=== PATIENT | male | born 1945 | race Caucasian/White ===

== ENCOUNTER 2021-08-27 16:55 | Emergency (ER) | payer MEDICARE, SELFPAY ==
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
[2021-08-27 16:58] VITALS: BP 111/52; PULSE 104; RESP 18; TEMP 36.1; O2SAT 96
[2021-08-27] MEDS: LIDOCAINE 5% PATCH 1 PATCH TRANSDERM (18:06)
[2021-08-27 18:29] LABS: SARS-CoV-2 RNA PCR Positive
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
[2021-08-27 19:52] LABS: Anion Gap 9 mmol/L (8-16); Blood Urea Nitrogen 20 mg/dL (9-20); Calcium 8.1 mg/dL (8.4-10.2); Carbon Dioxide 23 mmol/L (22-30); Chloride 98 mmol/L (98-107); Estimated CRCL calculation 61 ml/min; Estimated Glomerular Filt Rate > 60; Glucose 97 mg/dL (65-110); Sodium 130 mmol/L (137-145)
== END 2021-08-27 21:00 | disposition home or self-care (01) ==
PROVIDERS: Physician Assistant; Emergency Provider Emergency Medicine
DX: U07.1 COVID-19 (principal); Z28.310 Unvaccinated for COVID-19; F17.200 Nicotine dependence, unspecified, uncomplicated
CPT/HCPCS: 36415; 71046; 71100; 80048; 99283; A9270; C9803; U0003; U0005

== ENCOUNTER 2025-01-11 07:53 | Outpatient (CLI) | payer MEDICARE, SELFPAY ==
--- NOTE | ~2025-01-11 | CT_ITS ---
EXAMINATION: CT chest abdomen pelvis w con DATE: 01/11/2025 09:35 INDICATION: Throat cancer. TECHNIQUE: Computed tomography (CT) of the chest, abdomen, and pelvis was performed with 100 mL Omnipaque 350 intravenous contrast. Automated exposure control and iterative reconstruction technique were employed. The dose-length product was 819.42 mGy-cm. COMPARISON: None FINDINGS: CHEST CT: There is mild emphysema. There is mild atelectasis bilaterally. No pleural effusion. The heart size is normal. There is lipomatous hypertrophy of the interatrial septum. There are coronary artery calcifications. No pericardial effusion. There is mediastinal lymphadenopathy. The largest node measures 2.1 x 1.9 cm. There is mild chronic anterior wedging of multiple thoracic vertebral bodies. There is mild thoracic spondylosis. ABDOMEN/PELVIS CT: There is a 2.5 cm cyst in the liver. The gallbladder, spleen, pancreas, and adrenal glands are normal. There is cortical thinning of the kidneys. There is a left inguinal hernia containing nonobstructed small bowel. The bladder is distended. The prostate is moderately enlarged. There is diverticulosis of the colon without evidence of diverticulitis. The appendix is normal. There are no dilated loops of bowel. There are no pathologically enlarged lymph nodes. There is no free intraperitoneal fluid. There is mild lumbar spondylosis. Thoracolumbar dextroscoliosis is noted. IMPRESSION: 1. Mediastinal lymphadenopathy, which is indeterminate for metastatic disease. 2. Mild emphysema. 3. Left inguinal hernia containing nonobstructed small bowel. Reviewed, dictated and finalized at location E.
--- NOTE | ~2025-01-11 | CT_ITS ---
EXAMINATION: CT soft tissue neck w con DATE: 01/11/2025 09:36 INDICATION: Throat cancer. TECHNIQUE: Computed tomography (CT) of the neck was performed with 75 mL Omnipaque-350 intravenous contrast. Automated exposure control and iterative reconstruction technique were employed. The dose-length product was 819.42 mGy-cm. COMPARISON: None FINDINGS: There are changes of laryngectomy. There is mucosal thickening in the pharyngeal mucosal space and fat stranding in the neck, consistent with changes of radiation therapy. There is a 9 x 5 mm rim-enhancing mass in the pharynx on the left (axial image 48/111). There are no pathologically enlarged lymph nodes. There is plaque in the proximal internal carotid arteries with 0% stenosis relative to normal distal artery lumen diameters. There is mucosal thickening in the paranasal sinuses. The mastoid air cells are normal. There is moderate cervical spondylosis. IMPRESSION: 1. 9 x 5 mm rim-enhancing mass in the pharynx on the left, which may be benign or malignant. Reviewed, dictated and finalized at location E.
--- OUTSIDE RECORDS SUMMARY | 2025-01-11 08:06 | XMS_ITS ---
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 08/27/2022 Encounter for postoperative care 08/26/2022 Status post radical dissection of neck Tracheostomy status 08/26/2022 Constipation 08/23/2022 MRSA bacteremia 08/20/2022 Pneumonia of both lower lobe s due to methicillin resistant Staphylococcus aureus (MRSA) 08/20/2022 Nausea 08/20/2022 Other dysphagia 08/16/2022 Situational depression 08/16/2022 Hospital-acquired bacterial pneumonia 08/15/2022 Palliative care encounter 08/15/2022 ACP (advance care planning) 08/15/2022 Decreased mobility 08/15/2022 Acute respiratory failure with hypoxia 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 Past Treatment and Therapy Plans No past plan information found. Lifetime Dose Tracking * Chemical Lifetime Dose Automatic Entry Manual Entr y Effective Dose 39.12 mSv 39.12 mSv 0 mSv Total DLP 1,949.98 DLP 1,949.98 DLP 0 DLP CTDIvol Max 49.05 mGy 49.05 mGy 0 mGy
--- OUTSIDE RECORDS SUMMARY | 2025-01-11 08:06 | XMS_ITS | Clinical Summary ---
Author Organization [facility] Address [address] [place] [address] Phone Care Team Providers Care Certified Registered Dental Assistant Name Role Phone Unavailable Primary Care Provider Unavailabl e Allergies No known active allergies Medications levothyroxine 50 mcg tablet Take 1 Tablet (50 mcg) by mouth daily in the morning. 60 Tablet 08/31/2022 Active HYDROcodone-acet aminophen (HYCET) 7.5-325 mg/15 mL SolutionIndicati ons:Post-op pain 10 mL by G Tube route every 4 hours as needed for Pain, Moderate. Max Daily Amount: 60 mL 300 mL 08/31/2022 Active sertraline (ZOLOFT) 25 mg tablet TAKE 1 TABLET(25 MG) BY MOUTH DAILY 30 Tablet 3 09/25/2022 Active Active Problems Problem Noted Date Diagnosed Date [...] 07/25/2022 Tobacco abuse 07/25/2022 Oropharyngeal cancer 07/25/2022 Encounters Date Type Department Care Team Description 12/22/2024 External Device Data ST[facility] ABSTRACTION Provider, Abstract from Last 3 Months Family History Medical History Relation Name Comments Lung Cancer Mother Breast Cancer Sister Relation Name Status Comments Mother Sister Social History Tobacco Use Types Packs/Day Years Used Date Smoking Tobacco: Former Cigarettes Q uit: 07/24/2022 Smokeless Tobacco: Never Tobacco Cessation:Counseling Given: Not Answered Alcohol Use Standard Drinks/Week Comments Not Currently 0 (1 standard drink = 0.6 oz pur e alcohol) Feeling Safe Answer Date Recorded Are you in a relationship wi th someone who hurts you emotionally and/or physically? No 02/11/2023 Food Insecurity Answer Date Recorded Social/Environmental Concerns No concerns Transportation Needs Answer Date Record ed Social/Environmental Concerns No concerns Housing Stability Answer Date Recorded Social/Environmental Concerns No concerns Utility Needs Answer Date Recorded Social/Environmental Concerns No concerns Sex and Gender Information Value Date Recorded Sex Assigned at Not on file Legal Sex Male 7:45 PM CDT Gender Identity Not on file Sexual Orientation Not on file Last Filed Vital Signs Vital Sign Reading Time Taken Comments Blood Pressure 153/65 02/11/2023 11:00 PM CDT Pulse 63 02/11/2023 11:00 PM CDT Temperature 36.5 C (97.7 F) 02/11/2023 6:45 PM CDT Respiratory Rate 16 12/17/2023 11:35 AM CDT Oxygen Saturation 95% 02/11/2023 11:00 PM CDT Inhaled Oxygen Concentration - - Weight 59 kg (130 lb) 12/17/2023 11:35 AM CDT Height 170.2 cm (5' 7) 12/17/2023 11:35 AM CDT Body Mass Index 20.36 12/17/2023 11:35 AM CDT Plan of Treatment Health Maintenance Due Date Last Done Comments DTAP/TDAP/TD VACCINES (1 - Tdap) 1963 PNEUMOCOCCAL VACCINE 50+ YEARS (1 of 1 - PCV) 04/28/18 95 ZOSTER VACCINE (1 of 2) 1994 RSV VACCINE (60+ or ) (1 - 1-dose 75+ series) 2019 INFLUENZA VACCINE (#1) 2024 Medical Devices Implanted Type Area Design Engineering Intern Device Identifier Shelf Expiration Date Model / Serial / Lot Tube Feeding Corflo Naso W/ Stylet 10fr 87 - [id number] Implanted:Qty: 1 on 07/27/2022 by David Tobin MD at [facility] Feeding Device N/A: Nose [employer] HALYARD 10/02/2026 / / [id number] Tube Gastrostomy Al 18fr - [id number] Implanted:Qty: 1 on 08/17/2022 by Pamella Red MD at [facility] Feeding Device N/A: Stomach [employer] / / Insurance MEDICARE PART A AND B Advance Directives For more information, please contact: [phone] * Full Code (Latest Code Status on File) Date Activated Date Inactivated Comments 08/03/2022 5:52 PM 09/01/2022 1:30 AM * Full Code Date Activated Date Inactivated Comments 08/03/2022 6:48 AM 08/03/2022 5:52 PM * Full Code Date Activated Date Inactivated Comments 07/29/2022 5:50 PM 08/03/2022 6:47 AM * Full Code Date Activated Date Inactivated Comments 07/27/2022 6:12 AM 07/29/2022 5:50 PM * Full Code Date Activated Date Inactivated Comments 07/25/2022 8:35 AM 07/27/2022 6:12 AM
[2025-01-11 08:34] LABS: Estimated Glomerular Filt Rate > 60
== END 2025-01-11 07:54 | disposition home or self-care (01) ==
LOC: CHSIMG 07:58
PROVIDERS: PCP Family Medicine; Visit Provider Internal Medicine Hematology & Oncology
DX: C14.0 Malignant neoplasm of pharynx, unspecified (principal); R59.0 Localized enlarged lymph nodes; J43.9 Emphysema, unspecified; K40.90 Unilateral inguinal hernia, without obstruction or gangrene, not specified as recurrent
CPT/HCPCS: 70491; 71260; 74177; Q9967

== ENCOUNTER 2025-01-26 14:44 | Outpatient (CLI) | payer MEDICARE, SELFPAY ==
[2025-01-26 15:14] LABS: Hematocrit 44.3 % (37.0-46.0); Hemoglobin 14.5 g/dL (12.4-15.3); Immature Granulocyte Percent A 0.2 % (0.0-0.0); Lymphocytes Absolute Auto 2.43 K/mm3 (1.10-4.50); Mean Corpuscular HGB Conc 32.7 g/dL (32-36); Mean Corpuscular Hemoglobin 31.0 pg (27.0-31.0); Mean Corpuscular Volume 94.7 fL (78.0-102.0); Nucleated Red Blood Cells Absolute Auto 0.00 K/mm3 (0.00-0.00); Nucleated Red Blood Cells Perc 0.0 % (0-0.0); Platelet Count Result 248 K/mm3 (150-420); Red Blood Count 4.68 M/mm3 (4.70-6.10); White Blood Count 8.2 K/mm3 (4.8-10.8)
[2025-01-26 15:36] LABS: Alanine Aminotransferase 14 U/L (6-50); Albumin Level 4.2 g/dL (3.5-5.1); Alkaline Phosphatase 95 U/L (38-126); Anion Gap 9 mmol/L (4-12); Aspartate Amino Transferase 27 U/L (17-59); Bilirubin,Total 0.6 mg/dL (0.2-1.3); Blood Urea Nitrogen 14 mg/dL (9-20); Calcium 9.0 mg/dL (8.4-10.2); Carbon Dioxide 26 mmol/L (22-30); Chloride 106 mmol/L (98-107); Estimated Glomerular Filt Rate > 60; Glucose 171 mg/dL (65-110); Osmolality Calculated 296 mOsm/kg (285-295); Potassium 4.4 mmol/L (3.4-5.0); Sodium 141 mmol/L (137-145); Total Protein 8.7 g/dL (6.3-8.2)
[2025-01-26 15:52] LABS: Free T4 Free Thyroxine 0.87 ng/dL (0.78-2.19)
[2025-01-26 16:06] LABS: Thyroid Stimulating Hormone 9.320 uIU/mL (0.465-4.680)
--- OUTSIDE RECORDS SUMMARY | 2025-01-26 16:42 | XMS_ITS | Clinical Summary ---
Author Organization [facility] Address [address] [place] [address] Phone Care Team Providers Care Electromechanisms Design Drafter Name Role Phone Unavailable Primary Care Provider [...] (#1) 2024 Medical Devices Implanted Type Area Charter Driver Device Identifier Shelf Expiration Date Model / Serial / Lot Tube Feeding Corflo Naso W/ Stylet 10fr 26 - [id number] Implanted:Qty: 1 on 07/27/2022 by David Tobin MD at [facility] Feeding Device N/A: Nose [employer]ARD 10/02/2026 / / [id number] Tube Gastrostomy Al 18fr - [id number] Implanted:Qty: 1 on 08/17/2022 by Pamella Red MD at [facility] Feeding Device N/A: Stomach [employer] / / Insurance MEDICARE PART A AND B Advance Directives For more information, please contact: [phone] * Full Code (Latest Code Status on [...]
--- OUTSIDE RECORDS SUMMARY | 2025-01-26 16:42 | XMS_ITS ---
Author Organization [facility] Address [address] [place] [address] Phone Care Team Providers Care Cutter Grinder Operator Name Role Phone Unavailable Primary Care Provider [...]
== END 2025-01-26 14:45 | disposition home or self-care (01) ==
LOC: CHSLAB 14:48
PROVIDERS: PCP Family Medicine; Visit Provider Internal Medicine Hematology & Oncology
DX: C14.0 Malignant neoplasm of pharynx, unspecified (principal); Z13.29 Encounter for screening for other suspected endocrine disorder; E03.9 Hypothyroidism, unspecified
CPT/HCPCS: 36415; 80053; 84439; 84443; 85025